=== PATIENT | male | born 1965 ===

== ENCOUNTER 2017-12-02 01:59 | Emergency (ER) | payer SELFPAY ==
[~2017-12-02] VITALS: Ht 165.1 cm; Wt 71.4 kg
[2017-12-02] MEDS ORDERED: [UNRECOGNIZED DRUG - REMARK] (02:12)
[2017-12-02] MEDS ORDERED: LIDOCAINE-MPF 1%, 2ML ONE ×2 (02:47→02:48)
[2017-12-02] MEDS ORDERED: BACITRACIN ZINC OINT 500U/GM, 0.9 GM ONE ×2 (04:20→05:12)
[2017-12-02 05:42] VITALS: BP 140/85
== END 2017-12-02 06:13 | disposition home or self-care (01) ==
LOC: ED 05:40
DX: S61.212A Laceration without foreign body of right middle finger without damage to nail, initial encounter (principal); S61.211A Laceration without foreign body of left index finger without damage to nail, initial encounter; W10.9XXA Fall (on) (from) unspecified stairs and steps, initial encounter; Y93.89 Activity, other specified; Y99.8 Other external cause status; Y92.009 Unspecified place in unspecified non-institutional (private) residence as the place of occurrence of the external cause
CPT/HCPCS: 12042; 13132